=== PATIENT | male | born 1975 | race Caucasian/White ===

== ENCOUNTER → 2022-02-01 09:34 | Outpatient (CLI) | payer BC, SELFPAY ==
--- NOTE | ~2022-02-01 | XR_ITS ---
EXAMINATION: XR knee LT 3V DATE: 02/01/2022 10:14 INDICATION: Left knee pain. TECHNIQUE: 3 views of left knee including standing views were obtained. COMPARISON: Left knee radiographs 01/18/2011 FINDINGS: Bone alignment is normal. No fracture. There is mild tricompartmental osteoarthritis. No kn ee joint effusion. IMPRESSION: 1. Mild left knee osteoarthritis. Reviewed, dictated and finalized at location A.
== END ==
PROVIDERS: PCP Family Medicine Adolescent Medicine; Visit Provider Family Medicine Adolescent Medicine
DX: M17.12 Unilateral primary osteoarthritis, left knee (principal)
CPT/HCPCS: 73562

== ENCOUNTER 2024-03-21 09:25 | Emergency (ER) | payer BC, SELFPAY ==
[2024-03-21 09:36] VITALS: BP 151/105; PULSE 84; RESP 20; TEMP 36.7; O2SAT 99
[2024-03-21 10:09] LABS: Basophils Percent Auto 0.4 % (0.2-1.2); Eosinophils Absolute Auto 0.2 K/mm3 (0-0.3); Eosinophils Percent Auto 2.6 % (0-4.4); Hematocrit 44.6 % (42.0-52.0); Hemoglobin 15.2 g/dL (14.0-18.0); Immature Granulocyte Absolute 0.06 K/mm3 (0.00-0.031); Immature Granulocyte Percent A 0.6 % (0-0.5); Lymphocytes Absolute Auto 2.58 K/mm3 (0.9-3.2); Lymphocytes Percent Auto 27.7 % (18.3-44.2); Mean Corpuscular HGB Conc 34.1 g/dl (32-36); Mean Corpuscular Hemoglobin 30.6 pg (26-34); Mean Corpuscular Volume 89.7 fl (80-100); Mean Platelet Volume 10.6 fl (7.4-10.4); Monocytes Absolute Auto 0.8 K/mm3 (0.1-0.6); Monocytes Percent Auto 8.2 % (2.6-8.5); Neutrophils Absolute Auto 5.6 K/mm3 (1.3-6.7); Neutrophils Percent Auto 60.5 % (45.5-73.1); Platelet Count Result 354 k/mm3 (150-375); Red Blood Count 4.97 M/mm3 (4.6-6.20); Red Cell Distribution Width 13.3 % (11.5-14.5); White Blood Count 9.3 K/mm3 (4.5-10.0)
[2024-03-21 10:12] LABS: Appearance Urine Clear (Clear); Bilirubin Urine Negative (Negative); Blood Urine Negative (Negative); Color Urine Yellow (Yellow); Glucose Urine UA Negative (Negative); Ketones Urine Negative (Negative); Leukocyte Esterase Ur Negative LEU/UL (Negative); Nitrate Urine Negative (Negative); Protein Urine Negative (Negative); Specific Grav Ur 1.006 (1.001-1.035); Urobilinogen Urine 0.2 mg/dL (<2.0)
[2024-03-21 10:16] LABS: Add Urine Microscopic? NO
--- NOTE | 2024-03-21 10:19 | ED.GENADULT ---
HPI - General Adult General Chief complaint: Anxiety Stated complaint: anxiety/depression Time Seen by Provider: 03/21/24 09:50 History of Present Illness HPI narrative: Megan Mars is a 49 y/o male who presents today with reports of having increased anxiety states it has been building up for the past 6 mo to a year. He states that he also has some depression. He is not currently on any medications for depression or anxiety. He tried to get in with his PCP but they could not see him today. He denies SI/ HI / AVH. He is calm / cooperative Related Data Home Medications Medication Instructions Recorded Confirmed tadalafil 5 mg tablet 5 mg PO DAILY 01/29/22 03/05/24 Allergies Allergy/AdvReac Type Severity Reaction Status Date / Time No Known Allergies Allergy Verified 03/21/24 09:39 Review of Systems Review of Systems: All systems reviewed & are unremarkable except as noted in HPI and below PMFSH Past Medical History Medical History Broken arm Surgical History Surgical History Hx of tonsillectomy Family History Family History Father Hypertension Cerebrovascular accident Heart disease Mother Diabetes mellitus Hypertension Other Family history of cardiovascular disease Family history of malignant neoplasm Social History Social History Smoking packs per day: 0.5 Smoking cigarettes per day: 10.0 Years smoked: 20 Smoking pack-years: 10.00 Smoking status: Former smoker Tobacco type: cigarettes Second hand tobacco smoke exposure: Yes Smoking end date: 06/21/21 Alcohol intake: current Alcohol use details: Rarely Substance use: never Substance use type: does not use Living arrangements: with family Occupation/Education: occupation Gender identity (if verbalized by the patient): Male Sexual Orientation (if Verbalized by the Patient): Straight or Heterosexual Spiritual care concerns: No Agree to blood products: Yes Exam Narrative: GENERAL: Well-appearing, well-nourished, and in no acute distress. HEAD: Normocephalic, atraumatic. EYES: PERRLA and EOMI. ENT: Nares clear, no rhinorrhea or epistaxis. Mucous membranes moist. Oropharynx without tonsillar hypertrophy exudate or other lesions. NECK: Supple. No adenopathy or masses. No carotid bruits or JVD CHEST: Clear to auscultation. No respiratory distress. No wheezes rales or rhonchi HEART: Regular rate and rhythm. No murmur heard. Normal peripheral pulses. ABDOMEN: Soft, nontender, nondistended, normal active bowel sounds. EXTREMITIES: Normal range of motion. No edema. SKIN: Warm, dry, no rash. NEURO: No focal deficits. Alert and oriented x3. PSYCH: Normal mood and affect. Course Vital Signs Vital signs: Vital Signs Temperature 36.7 C 03/21/24 09:36 Pulse Rate 84 03/21/24 09:36 Respiratory Rate 20 03/21/24 09:36 Blood Pressure 151/105 H 03/21/24 09:36 Pulse Oximetry 99 03/21/24 09:36 Oxygen Delivery Room Air 03/21/24 09:36 Temperature 36.9 C 03/21/24 11:14 Pulse Rate 93 03/21/24 11:14 Respiratory Rate 16 03/21/24 11:14 Blood Pressure 149/99 H 03/21/24 11:14 Pulse Oximetry 97 03/21/24 11:14 Oxygen Delivery Room Air 03/21/24 09:36 Medical Decision Making MDM Narrative Medical decision making narrative: 49 y/o male who presents wanting some resources for his anxiety and depression Offered to medicate him while here with something for anxiety he states that he is driving and does not want to take anything at this time. He denies any new contributing factors that changed today or made him come in. States he has been dealing with depression/ anxiety for almost a year and wanted to get checked out and his PCP could not get him in today. He
[2024-03-21 10:25] LABS: Ethanol < 10 mg/dL (<10)
[2024-03-21 10:27] LABS: Amphetamine Screen Urine Negative (Negative); Barbiturate Screen Urine Negative (Negative); Benzodiazepines Screen Urine Negative (Negative); Cannabinoid Screen Urine Negative (Negative); Cocaine Screen Urine Negative (Negative); Methadone Screen Urine Negative (Negative); Opiate Screen Urine Negative (Negative); Phencyclidine Screen Urine Negative (Negative)
[2024-03-21 10:28] LABS: Alanine Aminotransferase 43 U/L (6-50); Albumin Level 4.7 g/dL (3.5-5.1); Alkaline Phosphatase 89 U/L (38-126); Anion Gap 11 mmol/L (4-12); Aspartate Amino Transferase 33 U/L (17-59); Bilirubin,Total 0.4 mg/dL (0.2-1.3); Blood Urea Nitrogen 10 mg/dL (9-20); Calcium 9.1 mg/dL (8.4-10.2); Carbon Dioxide 24 mmol/L (22-30); Chloride 106 mmol/L (98-107); Estimated CRCL calculation 106 ml/min; Estimated Glomerular Filt Rate > 60; Glucose 119 mg/dL (65-110); Potassium 4.1 mmol/L (3.4-5.0); Sodium 141 mmol/L (137-145)
[2024-03-21 10:47] LABS: Influenza A QL RT-PCR Negative (Negative); Influenza B QL RT-PCR Negative (Negative); RSV RNA, RT-PCR Negative (Negative); SARS-CoV-2 RNA PCR Negative (Negative)
[2024-03-21 11:14] VITALS: BP 149/99; PULSE 93; RESP 16; TEMP 36.9; O2SAT 97
== END 2024-03-21 11:18 | disposition home or self-care (01) ==
PROVIDERS: Emergency Medicine; Emergency Provider Nurse Practitioner Family; PCP Family Medicine Adolescent Medicine
DX: F41.8 Other specified anxiety disorders (principal); Z87.891 Personal history of nicotine dependence; Z20.822 Contact with and (suspected) exposure to COVID-19
CPT/HCPCS: 36415; 80053; 80307; 81003; 84443; 85025; 87637; 99283

== ENCOUNTER 2024-06-07 01:58 | Day surgery (SDC) | payer BC, SELFPAY ==
[2024-05-24 09:41] VITALS: BMI 35.2
[2024-06-07 07:37] VITALS: BP 124/83; PULSE 74; RESP 18; TEMP 36.1; O2SAT 96; BMI 34.5
[2024-06-07] MEDS: LACTATED RINGERS 1,000 ML 150 ML IV CONT (07:45)
--- NOTE | 2024-06-07 08:16 | PM.IMHP ---
H&P: HPI History of Present Illness Date/Time: 06/07/24 08:16 Chief Complaint: Screening for colorectal cancer Narrative: this is a 49-year-old man who presents for colonoscopy. He has never had a colonoscopy before. He denies any hematochezia or melena. Denies any family history of colon cancer. Review of Systems Review of Systems: All systems reviewed & are unremarkable except as noted in HPI and below Constitutional: Constitutional: Denies chills, Denies fever(s), Denies headache(s) and Denies weight loss Eyes: Eyes: Denies change in vision ENT: Denies dizziness, Denies headache(s), Denies neck mass and Denies throat swelling Cardiovascular: Cardiovascular: Denies chest pain, Denies lightheadedness and Denies dyspnea Respiratory: Respiratory: Denies cough, Denies dyspnea and Denies wheezing Gastrointestinal: Gastrointestinal: Denies abdominal pain, Denies change in bowel habits, Denies nausea and Denies vomiting Genitourinary: Genitourinary: Denies hematuria and Denies dysuria Musculoskeletal: Musculoskeletal: Reports as per HPI Integumentary/Breasts: Skin/Breast: Reports as per HPI Neurologic: Denies dizziness and Denies headache(s) Allergic/Immunologic: Allergic/Immunologic: Denies throat swelling and Denies wheezing [facility] Past Medical History Medical History Broken arm Surgical History Surgical History Hx of tonsillectomy Family History Family History Father Hypertension Cerebrovascular accident Heart disease Mother Diabetes mellitus Hypertension Other Family history of cardiovascular disease Family history of malignant neoplasm Social History Social History Smoking packs per day: 0.5 Smoking cigarettes per day: 10.0 Years smoked: 20 Smoking pack-years: 10.00 Smoking status: Former smoker Tobacco type: cigarettes Second hand tobacco smoke exposure: Yes Smoking end date: 06/21/21 Alcohol intake: current Drinks per week: 1 Alcohol use details: BEER Substance use: never Substance use type: does not use Living arrangements: with family Occupation/Education: occupation Gender identity (if verbalized by the patient): Male Sexual Orientation (if Verbalized by the Patient): Straight or Heterosexual Spiritual care concerns: No Agree to blood products: Yes Meds Home Medications and Allergies Home Medications Medication Instructions Recorded Confirmed Type tadalafil 5 mg tablet 5 mg PO DAILY 01/29/22 06/07/24 History hydroxyzine HCl 25 mg tablet 25 mg PO TID PRN anxiety #30 tabs 03/22/24 06/07/24 Rx atorvastatin 20 mg tablet 20 mg PO DAILY #90 tabs 05/07/24 06/07/24 Rx cetirizine 10 mg tablet (Zyrtec) 10 mg PO DAILY 05/24/24 06/07/24 History coQ10 (ubiquinol) 100 mg capsule 100 mg PO DAILY 05/24/24 06/07/24 History escitalopram oxalate 10 mg tablet 10 mg PO DAILY 05/24/24 06/07/24 History [id number]-an-[id number] 300 mcg-K 60 1 tablet PO DAILY 05/24/24 06/07/24 History mcg-lycop 600 mcg-lutein 300 mcg tablet (Centrum Silver Men) Allergies Allergy/AdvReac Type Severity Reaction Status Date / Time No Known Allergies Allergy Verified 06/07/24 07:36 Vital Signs Vital Signs - 24 hr 06/07/24 07:37 Temperature 36.1 C L Pulse Rate 74 Respiratory Rate 18 Blood Pressure 124/83 Pulse Oximetry 96 Oxygen Delivery Room Air Exam Const: General: no acute distress and alert Orientation/consciousness: patient oriented x3 HENMT: Head: normocephalic and atraumatic Ears: hearing grossly normal bilaterally Face/Nose/Sinus: Normal nares present Mouth: Yes Normal oral and palatal mucosa present Eyes: Periorbital: periorbital findings normal Sclera: sclerae normal EOM: EOMs intact bilaterally Neck: Neck: n
--- NOTE | 2024-06-07 08:42 | WPDANESEPPF ---
Anes - Initial Pre Proc Eval Procedure: Operation Date: 06/07/24 09:00 Proposed Procedures p Screening Colonoscopy - Denis Dhillon DO Date/Time: 06/07/24 08:42 Surgeon: Denis Dhillon DO Pre Op Diagnosis: Screening for malignant neoplasm of colon Patient Data Age: 49 Gender: M Height: 1.83 m Weight: 115.5 kg Last Vital Signs Temp 97 F L 06/07/24 07:37 Pulse 74 06/07/24 07:37 Resp 18 06/07/24 07:37 BP 124/83 06/07/24 07:37 Pulse Ox 96 06/07/24 07:37 O2 Del Method Room Air 06/07/24 07:37 Allergies Allergy/AdvReac Type Severity Reaction Status Date / Time No Known Allergies Allergy Verified 06/07/24 07:36 Home Medications Medication Instructions Recorded Confirmed Type tadalafil 5 mg tablet 5 mg PO DAILY 01/29/22 06/07/24 History hydroxyzine HCl 25 mg tablet 25 mg PO TID PRN anxiety #30 tabs 03/22/24 06/07/24 Rx atorvastatin 20 mg tablet 20 mg PO DAILY #90 tabs 05/07/24 06/07/24 Rx cetirizine 10 mg tablet (Zyrtec) 10 mg PO DAILY 05/24/24 06/07/24 History coQ10 (ubiquinol) 100 mg capsule 100 mg PO DAILY 05/24/24 06/07/24 History escitalopram oxalate 10 mg tablet 10 mg PO DAILY 05/24/24 06/07/24 History gihpigts-he-jlnpy 300 mcg-K 60 1 tablet PO DAILY 05/24/24 06/07/24 History mcg-lycop 600 mcg-lutein 300 mcg tablet (Centrum Silver Men) Patient hx anesthesia problems: none Family hx anesthesia problems: none Results Review: All pre-operative results and documents have been reviewed as part of the pre-operative evaluation. [facility] Past Medical History Medical History Broken arm Surgical History Surgical History Hx of tonsillectomy Family History Family History Father Hypertension Cerebrovascular accident Heart disease Mother Diabetes mellitus Hypertension Other Family history of cardiovascular disease Family history of malignant neoplasm Social History Social History Smoking packs per day: 0.5 Smoking cigarettes per day: 10.0 Years smoked: 20 Smoking pack-years: 10.00 Smoking status: Former smoker Tobacco type: cigarettes Second hand tobacco smoke exposure: Yes Smoking end date: 06/21/21 Alcohol intake: current Drinks per week: 1 Alcohol use details: BEER Substance use: never Substance use type: does not use Living arrangements: with family Occupation/Education: occupation Gender identity (if verbalized by the patient): Male Sexual Orientation (if Verbalized by the Patient): Straight or Heterosexual Spiritual care concerns: No Agree to blood products: Yes Anes - Eval Final PreProcedure Day of Procedure 06/07/24 08:42 Patient weight: obese Heart: regular rate and rhythm Lungs: clear to auscultation Airway: Mallampati scale class II Neurological: alert and oriented Last oral intake: >/= 8 hours ASA classification: II Emergent: no Anesthetic plan: proceed Anesthesia type and monitoring: general GIVS and standard monitoring Results Review: All pre-operative results and documents have been reviewed as part of the pre-operative evaluation. Informed Consent: The patient's anesthetic plan and its attendant risks and benefits were discussed with the patient/family/POA. Questions were solicited and answers provided to the satisfaction of the patient/family/POA.
[2024-06-07 08:43] VITALS: BP 99/69; PULSE 66; RESP 15; O2SAT 92
[2024-06-07 08:53] VITALS: BP 115/75; PULSE 63; RESP 24; O2SAT 96
[2024-06-07 09:03] VITALS: BP 114/85; PULSE 67; RESP 23; O2SAT 96
== END 2024-06-07 09:16 | disposition home or self-care (01) ==
PROVIDERS: PCP Family Medicine Adolescent Medicine; Visit Provider Surgery
PROC: 0DJD8ZZ Inspection of Lower Intestinal Tract, Via Natural or Artificial Opening Endoscopic (ICD-10-PCS; CPT 45378; principal; 2024-06-07 09:00)
DX: Z12.11 Encounter for screening for malignant neoplasm of colon (principal); K63.5 Polyp of colon; E66.9 Obesity, unspecified; Z68.34 Body mass index [BMI] 34.0-34.9, adult; Z98.890 Other specified postprocedural states; Z87.891 Personal history of nicotine dependence; Z80.9 Family history of malignant neoplasm, unspecified; Z82.49 Family history of ischemic heart disease and other diseases of the circulatory system
CPT/HCPCS: 45380; 88305; J2704; J7120